=== PATIENT | female | born 1965 | race Caucasian/White ===

== ENCOUNTER 2016-10-13 16:02 | Emergency (ER) | payer BC ==
[2016-10-13] MEDS ORDERED: SODIUM CHLORIDE 0.9% 1,000 ML ONE (16:35)
[2016-10-13] MEDS ORDERED: DIPHENHYDRAMINE HCL 50 MG/1 ML VIAL ONE (16:35)
[2016-10-13] MEDS ORDERED: ASPIRIN CHEWTAB 81 MG TABLET ONE (16:35)
[2016-10-13 16:41] LABS: URINE BILIRUBIN NEGATIVE (NEGATIVE); URINE BLOOD NEGATIVE (NEGATIVE); URINE GLUCOSE (UA) NEGATIVE (NEGATIVE); URINE LEUKOCYTE ESTERASE NEGATIVE (NEGATIVE); URINE NITRITE NEGATIVE (NEGATIVE); URINE PROTEIN NEGATIVE (NEGATIVE); URINE UROBILINOGEN NORMAL (0-1 mg/dl)
[2016-10-13 16:44] LABS: URINE APPEARANCE CLEAR; URINE COLOR LIGHT YELLOW
[2016-10-13 17:03] LABS: ABSOLUTE NEUTROPHIL COUNT 4.5 K/mm3 (1.8-7.7); BASO % 0.4 % (0.2-1.0); EOS # 0.1 (0.0-0.5); EOS % 1.4 % (0.9-2.9); HEMATOCRIT 40.8 % (37.0-47.0); HEMOGLOBIN 13.5 gm/l (12.0-16.0); IMM NEUT% 0.3 % (0-1); LYMPH % 27.5 % (15-45); MEAN CELL VOLUME 97.6 fl (81.0-99.0); MEAN CORPUSCULAR HEMOGLOBIN 32.3 pg (27.0-31.0); MEAN CORPUSCULAR HGB CONC 33.1 g/dl (33.0-37.0); MEAN PLATELET VOLUME 11.1 fl (7.4-10.4); MONO # 0.5 (0.0-0.8); MONO % 7.1 % (4-12); NEUT % 63.3 % (43-75); PLATELET COUNT 271 K/mm3 (130-400); RED CELL DISTRIBUTION WIDTH 12.5 % (11.5-14.5)
[2016-10-13 17:23] LABS: ALB/GLOB RATIO 1.6 (>1.0); ALBUMIN 4.5 gm/dL (3.5-5.7); CALCIUM 9.6 mg/dL (8.6-10.3)
[2016-10-13 17:25] LABS: TROPONIN I < 0.01 ng/ml (0.0-0.06)
[2016-10-13 17:29] LABS: CKMB ISOENZYME 1.8 ng/ml (0.6-6.3)
[2016-10-13] MEDS ORDERED: METOPROLOL TARTRATE 1 MG/ML 5ML VIAL ONE (17:43)
[2016-10-13] MEDS ORDERED: LORAZEPAM 2 MG/ML 1ML SDV ONE (18:35)
[2016-10-13] MEDS ORDERED: MECLIZINE HCL 25 MG TABLET ONE (18:35)
[2016-10-19 05:59] LABS: COLLECTION LENGTH Random hours (()); METANEPHRINE URINE/CRT 42 ug/g CRT (0-300); NORMETANEPHRINE PER VOLUME 53 ug/L (()); NORMETANEPHRINE URINE/CRT 279 ug/g CRT (0-400)
== END 2016-10-13 19:19 | disposition home or self-care (01) ==
LOC: ED 16:02
DX: R42 Dizziness and giddiness (principal); R25.1 Tremor, unspecified; R11.0 Nausea
CPT/HCPCS: 83690; 83835 ×2; 85025; 82550; 82553; 80053; 81003; 84484; 96375 ×2; 99284; 96374; 93005; 99283; A9270 ×2; J2060; J1200; J7030